=== PATIENT | male | born 1995 | race Caucasian/White ===

== ENCOUNTER 2017-07-01 15:46 | Emergency (ER) | payer OTHER ==
[2017-07-01 15:58] VITALS: RESP 16; TEMP 98.2
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
[2017-07-01 17:10] VITALS: BP 132/78; PULSE 80; O2SAT 96
== END 2017-07-01 17:08 | disposition home or self-care (01) ==
DX: S62.336A Displaced fracture of neck of fifth metacarpal bone, right hand, initial encounter for closed fracture (principal); W22.8XXA Striking against or struck by other objects, initial encounter